=== PATIENT | male | born 1970 | race Caucasian/White ===

== ENCOUNTER 2020-07-07 16:14 | Emergency (ER) | payer OTHER, SELFPAY ==
--- NOTE | ~2020-07-07 | CT_ITS ---
EXAMINATION: CT abdomen pelvis wo con DATE: 07/07/2020 16:45 INDICATION: Left flank pain. TECHNIQUE: Computed tomography (CT) of the abdomen and pelvis was performed without intravenous contr ast. Automated exposure control and iterative reconstruction technique were employed. The dose-length product was 1414.11 mGy-cm. COMPARISON: None. FINDINGS: The visualized portions of the lung bases demonstrate minimal atelectasis. No pleural effus ion. The heart size is normal. No pericardial effusion. The liver, spleen, gallbladder, pancreas, and adrenal glands are normal. There is a 3 mm stone in right kidney. There is mild left hydronephrosis and hydroureter. There is a 2 mm stone in distal left ureter. There are no dilated loops of bowel. Th ere are changes of appendectomy. There are no pathologically enlarged lymph nodes. There is no free i ntraperitoneal fluid. There are changes of posterior fusion procedure from L3 to S1. IMPRESSION: 1. 2 mm stone in distal left ureter with mild left hydronephrosis and hydroureter. 2. 3 mm nonobstructing right kidney stone. Reviewed, dictated and finalized at location B. IMPRESSION: 1. 2 mm stone in distal left ureter with mild left hydronephrosis and hydrouret er. 2. 3 mm nonobstructing right kidney stone.
--- NOTE | ~2020-07-07 | XR_ITS ---
XR abdomen/kub 1V 07/07/2020 18:34 INDICATION: Low back pain kidney stone. CT dated 07/07/2020 TECHNIQUE: KUB COMPARISON: CT dated 07/07/2020 FINDINGS: Bowel gas pattern is normal. There is a small calcification in the left pelvis, consistent with distal ureteral stone. There are surgical changes consistent with fusion and laminectomy L4-S1. There is no evidence of free air, mass, organomegaly, ascites or obstruction. No abnormal calculi ar e seen. The bones appear intact. IMPRESSION: 1: 3 mm distal left ureteral stone near the expected location of the UVJ. Reviewed, dictated and finalized at location A.
[2020-07-07 16:29] VITALS: BP 178/100; PULSE 68; RESP 18; TEMP 36.2; O2SAT 97
[2020-07-07 16:50] LABS: Basophils Absolute Auto 0.1 K/mm3 (0.0-0.1); Basophils Percent Auto 0.9 % (0.2-1.2); Eosinophils Absolute Auto 0.1 K/mm3 (0-0.3); Eosinophils Percent Auto 0.8 % (0-4.4); Hematocrit 44.8 % (42.0-52.0); Hemoglobin 15.7 g/dL (14.0-18.0); Immature Granulocyte Absolute 0.06 K/mm3 (0.00-0.031); Immature Granulocyte Percent A 0.5 % (0-0.5); Lymphocytes Percent Auto 13.7 % (18.3-44.2); Mean Corpuscular Hemoglobin 32.4 pg (26-34); Mean Corpuscular Volume 92.6 fl (80-100); Mean Platelet Volume 9.9 fl (7.4-10.4); Monocytes Percent Auto 8.6 % (2.6-8.5); Neutrophils Absolute Auto 8.8 K/mm3 (1.3-6.7); Neutrophils Percent Auto 75.5 % (45.5-73.1); Platelet Count Result 240 k/mm3 (150-375); Red Blood Count 4.84 M/mm3 (4.6-6.20); Red Cell Distribution Width 12.8 % (11.5-14.5); White Blood Count 11.7 K/mm3 (4.5-10.0)
[2020-07-07 16:57] LABS: Anion Gap 12 mmol/L (8-16); Blood Urea Nitrogen 15 mg/dL (9-20); Calcium 10.1 mg/dL (8.4-10.2); Carbon Dioxide 23 mmol/L (22-30); Chloride 107 mmol/L (98-107); Estimated CRCL calculation 83 ml/min; Estimated Glomerular Filt Rate 49; Glucose 115 mg/dL (75-110); Potassium 4.1 mmol/L (3.4-5.0); Sodium 142 mmol/L (137-145)
--- NOTE | 2020-07-07 18:07 | ED.GENADULT ---
HPI - General Adult General Chief complaint: Urogenital-Male Stated complaint: left flank pain Time Seen by Provider: 07/07/20 18:04 Source: RN notes reviewed History of Present Illness HPI narrative: Patient presents to emergency room from home for left-sided flank pain. Patient states pain began this morning. Is located left flank and radiates around her left lower abdomen described as sharp and stabbing associated nausea vomiting. States he had a kidney stone approximate 1 year ago and this feels similar to prior states he took ibuprofen this morning with no relief. Denies any fevers or chills chest pain, shortness of breath or any other symptoms Related Data Allergies Allergy/AdvReac Type Severity Reaction Status Date / Time No Known Allergies Allergy Unverified 11/11/19 09:01 Review of Systems Review of Systems: Narrative: Gen.: Denies fevers or chills ENT: Denies congestion Respiratory: Denies shortness of breath or cough CV: Denies chest pain or palpitations GI: See HPI denies burning, urgency, frequency or hematuria Musculoskeletal: Denies back pain or muscle pain Neuro: Denies numbness, tingling, weakness or focal weakness Skin: Denies rash Except as documented, all other systems reviewed and negative [facility] Past Medical History Medical History (Updated 07/07/20 @ 18:59 by Charles Mitchell DO) Essential (primary) hypertension Family History Family History Other Cerebrovascular accident Diabetes mellitus Family history of coronary artery disease Family history of obesity Hypertension Social History Social History Smoking status: Never smoker Alcohol intake: never Gender identity (if verbalized by the patient): Male Exam Narrative: Exam Narrative: APPEARANCE: No acute distress, nontoxic, resting in bed EYES: EOMI HEENT: Normocephalic, atraumatic, OMM RESPIRATORY: No respiratory distress Clear to auscultation bilaterally with no rhonchi wheezing or rales. CARDIOVASCULAR: Regular rate and rhythm without murmurs rubs or gallops. ABDOMINAL: Soft, nontender, nondistended, no rebound or guarding left flank tenderness MUSCULOSKELETAl: Moves all extremities. No clubbing, cyanosis or edema. NEURO: Awake and alert. Following commands, speech normal, no focal deficits SKIN:: Warm, dry. No rashes lesions or abrasions PSYCHIATRIC: Normal affect/mood, Course Course Emergency Course: Discussed with patient results of workup and diagnosis. Discussed need for follow-up with primary care, proper use of medication, and reasons to return to the emergency department. Patient understands and agrees to current treatment plan Vital Signs Vital signs: Vital Signs Temperature 97.2 F L 07/07/20 16:29 Pulse Rate 68 07/07/20 16:29 Respiratory Rate 18 07/07/20 16:29 Blood Pressure 178/100 H 07/07/20 16:29 Pulse Oximetry 97 07/07/20 16:29 Temperature 97.2 F L 07/07/20 16:29 Pulse Rate 68 07/07/20 16:29 Respiratory Rate 18 07/07/20 16:29 Blood Pressure 178/100 H 07/07/20 16:29 Pulse Oximetry 97 07/07/20 16:29 Medical Decision Making MDM Narrative Medical decision making narrative: Patient's abdomen is soft without significant pain or signs of surgical abdomen on serial exams. Lab and x-ray evaluations are reviewed and patient is felt to be a reasonable candidate for outpatient management. Patient was instructed as to limitations of x-ray and laboratory evaluation and encouraged to return to ED or primary physician for repeat exam in 12 hours if continued or worsening pain Vital Signs Vital Signs: Vital Signs Temperature 97.2 F L 07/07/20 16:29 Pulse Rate 68 07/07/20 16:29 Respiratory Rate 18 07/07/20 16:29 Blood Pressure 178/100 H 07/07/20 16:29 Pulse Oximetry 97 07/07/20 16:29 Temperature 97.2 F L 07/07/20 16:29 Pulse Rate 68 07/07/20 16:
[2020-07-07] MEDS: TAMSULOSIN HCL 0.4 MG CAPSULE PO (18:21)
[2020-07-07] MEDS: ONDANSETRON INJ 4 MG/2 ML VIAL IV PUSH (18:21)
[2020-07-07] MEDS: SODIUM CHLORIDE 0.9% IV 1,000 ML 999 ML IV CONT (18:22)
[2020-07-07] MEDS: KETOROLAC 30 MG/ML VIAL (*BKC) IV PUSH (18:22)
[2020-07-07 18:34] LABS: Add Urine Microscopic? YES; Appearance Urine Clear (Clear); Bilirubin Urine Negative (Negative); Blood Urine Negative (Negative); Color Urine Yellow (Yellow); Glucose Urine UA Negative (Negative); Ketones Urine 1+ mg/dL (Negative); Leukocyte Esterase Ur Negative LEU/UL (Negative); Mucus Urine Rare /lpf; Nitrate Urine Negative (Negative); Protein Urine 1+ mg/dL (Negative); Specific Grav Ur 1.026 (1.001-1.035); Squamous Epithelial Cell Urine Rare /hpf (Few); Urobilinogen Urine Negative mg/dL (<2.0); WBC Urine 0-3 /hpf
[2020-07-07 19:29] VITALS: BP 146/87; PULSE 88; RESP 14; O2SAT 99
== END 2020-07-07 19:29 | disposition home or self-care (01) ==
PROVIDERS: Emergency Medicine; Emergency Provider Emergency Medicine; PCP Family Medicine
DX: N13.2 Hydronephrosis with renal and ureteral calculous obstruction (principal); I10 Essential (primary) hypertension
CPT/HCPCS: 36415; 74018; 74176; 80048; 81001; 85025; 96361; 96374; 96375; 99284; A9270; J1885; J2405; J7030